=== PATIENT | female | born 1950 | race Caucasian/White ===

== ENCOUNTER 2018-04-07 07:24 | Emergency (ER) | payer OTHER, BC ==
[2018-04-07] MEDS: KETOROLAC 60 MG INJ IM (08:18)
[2018-04-07] MEDS: DEXAMETHASONE 10 MG/ML 1 ML INJ IM (08:18)
== END 2018-04-07 08:34 | disposition home or self-care (01) ==
LOC: FTE 07:24
DX: M79.604 Pain in right leg (principal)
CPT/HCPCS: 96372; 99284-25